=== PATIENT | female | born 1970 | race Caucasian/White ===

== ENCOUNTER 2019-07-20 22:30 | Emergency (ER) | payer BC ==
--- OUTSIDE RECORDS SUMMARY | 2019-07-20 22:45 | XMS REPORT | Continuity of Care Document ---
:1970 External Reference #:[id number] Author Name Jaqueline Ritchie NP (transmitted by agent of provider Arabella wKok) Address [address], [address] [place] [address] Care Team Providers Name Role Phone Anum Gardiner NP - Family Care Team Information Negotiator [phone] Problems Active Problems Provider Date Migraine without aura Emily Christie M.D. Onset: 06/16/2015 Social History Type Date Description Comments Sex Unknown Tobacco Use Start: Unknown Currently smokes 1-5 Cigarettes Daily Smoking Status Reviewed: 07/14/19 Currently smokes 1-5 Cigarettes Daily ETOH Use Currently consumes 1-2 days per week alcohol Tobacco Use Start: Unknown Light tobacco smoker (10 or fewer cigarettes/day) Recreational Drug Use Former Drug User Recreational Drug Use Formerly used Marijuana sporadically Exercise Type/Frequency Exercises regularly floor exercises and Yoga- 3-4 days per week. pt unable to do Cardio since diagnosis of anemia. Allergies, Adverse Reactions, Alerts Description No Known Drug Allergies Medications Active Medications SIG Qnty Indications Ordering Date Provider Zonisamide 1 po qhs for 1 wk 120caps G43.009 Nick Ramsay 03/25/2019 25mg then 2 qhs for 1 Christianne Gaytan Capsules wk then 3 qhs for 1 wk then 4 qhs Naratriptan HCL 1 by mouth as 9tabs G43.019 Nick Ramsay 03/25/2018 2.5mg needed migraine Christianne Gaytan Tablets may repeat in 4 hours, max 2/day, max 2 days per week Topiramate 1 tablet twice 360tabs Nick Ramsay 09/26/2017 100mg daily Christianne Gaytan Tablets Fluoxetine HCL 2-3 capsules by 270caps Nick Ramsay 12/06/2015 20mg mouth once daily Christianne Gaytan Capsules as directed Zofran 1 tab by mouth 20tabs Nick S. 06/02/2015 4mg Tablets every 6 hours as Christianne Gaytan needed nausea Adderall 1 by mouth twice 60tabs Unknown 20mg Tablets a day Omeprazole 1 tab po daily Anum Gardiner, 20mg [address] Caps[address] Iron (Ferrous 1 by mouth twice Unknown Gluconate) a day 256(28Fe) mg Tablets Xanax 1/2 to 1 tablet Unknown 0.25mg Tablets twice per day as needed for anxiety Naproxen Sodium Take One Tablet Unknown 550mg By Mouth Twice A Tablets Day With Food as Needed For Pain Valacyclovir HCL 1 by mouth every Unknown 500mg day Tablets Immunizations Description No Information Available Vital Signs Date Vital Result Comment 07/14/2019 2:48pm Height 67.5 inches 5'7.50" Weight 219.00 lb Heart Rate 92 /min BP Systolic Sitting 130 mmHg Lue reg cuff BP Diastolic Sitting 106 mmHg Lue reg cuff Respiratory Rate 20 /min O2 % BldC Oximetry 97 % On Ra BMI (Body Mass Index) 33.8 kg/m2 06/02/2019 12:57pm Height 67.5 inches 5'7.50" Weight 200.00 lb Heart Rate 88 /min BP Systolic Sitting 132 mmHg Lue large cuff BP Diastolic Sitting 90 mmHg Lue large cuff Respiratory Rate 16 /min O2 % BldC Oximetry 97 % BMI (Body Mass Index) 30.9 kg/m2 Results Description No Information Available Procedures Date Code Description Status 05/19/2019 70009 Sleep Study Unattended,HRT Rate,Oxygen Sat,Resp Completed Effort/Airflow Medical Devices Description No Information Available Encounters Type Date Location Provider Dx Diagnosis Office Visit 07/14/2019 Pulmonology Juliann Parsons G47.33 Obstructive sleep 3:00p [facility] apnea (adult) [facility] (pediatric) R53.83 Other fatigue Office Visit 06/02/2019 Pulmonology Juliann Parsons G47.33 Obstructive sleep 1:00p [facility] apnea (adult) [facility] (pediatric) R53.83 Other fatigue Office Visit 05/14/2019 2:00p [facility] Laisha Power, R06.83 [facility] R53.83 Other fatigue Office Visit 03/25/2019 [facility] Nick Ramsay G43.009 Migraine w/o 8:45a [facility] Gay[facility] M.D. aura, not intractable, w/o status migrainosus Office Visit 02/19/2019 [facility] Leon Wesley, R53.82 Chronic fatigue, 3:00p [facility] [place] G43.909 Migraine, unsp, not intractable, without status migrainosus D50.0 Iron deficiency anemia secondary to blood loss (chronic) Z68.34 Body mass index (BMI) 34.0-34.9, adult Assessments Date Code Description Provider 07/14/2019 G47.33 Obstructive sleep apnea (adult) (pediatric) Jaqueline Ritchie, [facility] 07/14/2019 R53.83 Other fatigue Jaqueline Ritchie NP 06/02/2019 G47.33 Obstructive sleep apnea (adult) (pediatric) Jaqueline Ritchie NP 06/02/2019 R53.83 Other fatigue Jaqueline Ritchie, [facility] 05/19/2019 G47.33 Obstructive sleep apnea (adult) (pediatric) Laisha Power MD 05/14/2019 R06.83 Snoring Laisha Power MD 05/14/2019 R53.83 Other fatigue Laisha Power MD 03/25/2019 G43.009 Migraine without aura, not intractable, Nick Gaytan M.D. without status migra 02/19/2019 R53.82 Chronic fatigue, unspecified Leon Wesley MD 02/19/2019 G43.909 Migraine, unsp, not intractable, without Leon Wesley MD status migrainosus 02/19/2019 D50.0 Iron deficiency anemia secondary to blood eLon Wesley MD loss (chronic) 02/19/2019 Z68.34 Body mass index (BMI) 34.0-34.9, adult Leon Wesley MD Plan of Treatment 07/14/2019 - Jaqueline Ritchie NPG47.33 Obstructive sleep apnea (adult) ( pediatric)Follow up:6 monthsRecommendations:Keep up the good work with your CPAP ! Aim to get 7-8 hours of sleep each night to feel your best.R53.83 Other fatigue Functional Status Description No Information Available Mental Status Description No Information Available Referrals Refer to Reason for Referral Status Appt Date Laisha Powre MD evnany sleep apnea Patient Notified 05/14/[address] [place] [phone]
[2019-07-21] MEDS ORDERED: NS 0.9% 1000 ML** 1,000 ML IV.FLUID IV ONE (00:19)
[2019-07-21] MEDS ORDERED: Ketorolac INJ* 30 MG/ML 1 ML VIAL IV PUSH ONE (00:21)
[2019-07-21] MEDS ORDERED: methylPREDNISolone 125 MG* 2 ML VIAL IV ONE (00:21)
[2019-07-21] MEDS ORDERED: Clindamycin 900 MG IVPREMIX(* 900 MG/50 ML SDV IV ONE (00:21)
--- NOTE | 2019-07-21 00:35 | ED ---
Skin Complaint - HPI Summary HPI Summary: Patient is a 48 y/o F presenting to ED with complaints of an area of redness at her right thigh that is pruritic and painful. 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 When she returned to her house, she noted that her thigh was "irritated". Pain onset after pruritus. Sx gradually worsened since onset. Patient notes that she was feeling "run-down" earlier today before coming to ED. PMHx of anxiety, depression, migraines and GERD, patient is on Prozac, Omeprazole, and Fluoxetine. She additionally notes that she took Naproxen a few hours before ED arrival. On triage, pain is rated 8 /10, nothing is noted to aggravate/alleviate Sx. Home medications and allergies are reviewed. - History of Current Complaint Chief Complaint: EDExtremityLower Time Seen by Provider: 07/21/19 00:07 Stated Complaint: POSS CELLULITIS ON LEG PER PT Hx Obtained From: Patient Onset/Duration: Started Days Ago, Still Present Skin Exposure Onset/Duration: Days Ago Timing: Constant, Lasting Days Current Severity: Severe Pain Intensity: 8 Pain Scale Used: 0-10 Numeric Skin Location: Leg - right thigh Character: Pruritus, Pain, Redness, Painful Aggravating Symptom(s): Nothing Alleviating Symptom(s): Nothing Associated Signs & Symptoms: Weakness - feeling "run down" - Allergy/Home Medications Allergies/Adverse Reactions: Allergies Allergy/AdvReac Type Severity Reaction Status Date / Time No Known Allergies Allergy Verified 05/20/15 16:02 Home Medications: Home Medications Dextroamphetamine/Amphetamine [Dextroamp-Amphetamin 20 mg Tab] 20 mg PO DAILY [History Confirmed 07/21/19] FLUoxetine CAP* [Prozac CAP*] 60 mg PO DAILY 07/21/19 [History Confirmed ] Iron 65 mg PO DAILY 07/21/19 [History Confirmed 07/21/19] Naratriptan HCl 2.5 mg PO BID PRN 07/21/19 [History Confirmed 07/21/19] Omeprazole 20 mg PO DAILY 07/21/19 [History Confirmed 07/21/19] Zonisamide 100 mg PO QPM 07/21/19 [History Confirmed 07/21/19] PMH/Surg Hx/FS Hx/Imm Hx Endocrine/Hematology History: Denies: Hx Diabetes Cardiovascular History: Denies: Hx Congestive Heart Failure, Hx Hypertension, Hx Pacemaker/ICD History: Denies: Hx Renal Disease Sensory History: Denies: Hx Hearing Aid Psychiatric History: Denies: Hx Panic Disorder - Surgical History Surgery Procedure, Year, and Place: Tubal Ligation - Immunization History Date of Tetanus Vaccine: PT STATES UNSURE Date of Influenza Vaccine: NONE Infectious Disease History: No Infectious Disease History: Denies: Traveled Outside the [place] in Last 30 Days - Family History Known Family History: Positive: Cardiac Disease, Diabetes - Social History Alcohol Use: Occasionally Substance Use Type: Reports: None Smoking Status (MU): Current Some Day Smoker Review of Systems Positive: Fatigue - feeling "run down" . Negative: Fever - on vitals, temp is 99.7 F Skin: Other - positive - red, painful, pruritic area at right thigh All Other Systems Reviewed And Are Negative: Yes Physical Exam - Summary Physical Exam Summary: VITAL SIGNS: Reviewed. GENERAL: Patient is a well-developed and nourished female who is lying comfortable in the stretcher. Patient is not in any acute respiratory distress. HEAD AND FACE: No signs of trauma. No ecchymosis, hematomas or skull depressions. No sinus tenderness. EYES: PERRLA, EOMI x 2, No injected conjunctiva, no nystagmus. EARS: Hearing grossly intact. Ear canals and tympanic membranes are within normal limits. MOUTH: Oropharynx within normal limits. NECK: Supple, trachea is midline, no adenopathy, no JVD, no carotid bruit, no c- spine tenderness, neck with full ROM CHEST: Symmetric, no tenderness at palpation LUNGS: Clear to auscultation bilaterally. No wheezing or crackles. CVS: Regular rate and rhythm, S1 and S2 present, no murmurs or gallops appreciated. ABDOMEN: Soft, non-tender. No signs of distention. No rebound no guarding, and no masses palpated. Bowel sounds are normal. EXTREMITIES: FROM in all major joints, no edema, no cyanosis or clubbing. NEURO: Alert and oriented x 3. No acute neurological deficits. Speech is normal and follows commands. SKIN: Dry and warm. There is a large area of redness, tenderness, warmness over medial aspect of the right lower thigh going to the right upper leg. The area is well demarcated. Triage Information Reviewed: Yes Vital Signs On Initial Exam: Initial Vitals Temp Pulse Resp BP Pulse Ox 99.7 F 90 18 165/106 99 07/20/19 22:36 07/20/19 22:36 07/20/19 22:36 07/20/19 22:36 07/20/19 22:36 Vital Signs Reviewed: Yes Diagnostics - Vital Signs Vital Signs Temp Pulse Resp BP Pulse Ox 07/21/19 00:00 84 98 07/20/19 23:52 78 118/73 07/20/19 22:36 99.7 F 90 18 165/106 99 - Laboratory Result Diagrams: 07/21/19 00:40 07/21/19 00:40 Lab Statement: Any lab studies that have been ordered have been reviewed, and results considered in the medical decision making process. Course/Dx - Course Course Of Treatment: Patient is a 48 y/o F presenting to ED with complaints of an area of redness at her right thigh that is pruritic and painful. 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 When she returned to her house, she noted that her thigh was "irritated". Pain onset after pruritus. Sx gradually worsened since onset. Patient notes that she was feeling "run-down" earlier today before coming to ED. On physical exam, there is a large area of redness, tenderness, warmness over medial aspect of the right lower thigh going to the right upper leg. The area is well demarcated. Labs showed WBC 15, MPV 7.3, absolute neuts 10.7, absolute monos 1.3, absolute Eos 0.7, CRP 9.16, total protein 6.3. During ED course, patient received fluids , solu-medrol 125 mg IV, toradol 15 mg IV, and Cleocin 900 mg in 50 mls @ 100 mls/hr IV. 0146 - Patient's case was discussed with Dr. Salvador, Dr. Salvador will evaluate the patient. 0208 - After evaluation, Dr. Salvador believes that the patient can be discharged to home with oral antibiotics. Patient is agreeable with this. Patient to be discharged to home. - Diagnoses Provider Diagnoses: Cellulitis of right leg - Physician Notifications Discussed Care Of Patient With: Mona Salvador Time Discussed With Above Provider: 01:46 Instructed by Provider To: Other - 0146 - Patient's case was discussed with Dr. Salvador, Dr. Salvador will evaluate the patient. 0208 - After evaluation, Dr. Salvador believes that the patient can be discharged to home with oral antibiotics. Patient is agreeable with this. Patient to be discharged to home. Discharge ED - Sign-Out/Discharge Documenting (check all that apply): Patient Departure - DISCHARGE Patient Received Moderate/Deep Sedation with Procedure: No - Discharge Plan Condition: Stable Disposition: HOME Prescriptions: Clindamycin Cap(NF) [Clindamycin Cap 300 mg Cap(NF)] 300 mg PO Q6H #30 cap Ibuprofen TAB* [Motrin TAB* 800 MG] 800 mg PO Q6H PRN #30 tab PRN Reason: Pain - Moderate Patient Education Materials: Cellulitis (ED) Referrals: Anum Gardnier, [employer] [employer] [Primary Care Provider] - 3 Days Additional Instructions: PLEASE RETURN TO ED FOR ANY NEW OR WORSENING SYMPTOMS. PLEASE FOLLOW UP WITH YOUR PRIMARY CARE PHYSICIAN WITHIN THREE DAYS. - Attestation Statements Document Initiated by Cris: Yes Documenting Scribe: JORGE QUINTERO Provider For Whom Cris is Documenting (Include Credential): ARUN LAW MD Scribe Attestation: IJORGE, scribed for ARUN LAW MD on 07/21/19 at 0413. Status of Scribe Document: Ready
[2019-07-21 00:53] LABS: ABS Basophils 0.1 10^3/ul (0-0.2); ABS Eosinophils 0.7 10^3/ul (0-0.6); ABS Lymphocytes 2.2 10^3/ul (1.0-4.8); ABS Monocytes 1.3 10^3/ul (0-0.8); ABS Neutrophils 10.7 10^3/ul (1.5-7.7); Eosinophil % 4.4 %; Hematocrit 42 % (35-47); Hemoglobin 13.9 g/dL (12.0-16.0); Lymphocyte % 14.5 %; Mean Corpuscular HGB Conc 33 g/dL (31-36); Mean Corpuscular Hemoglobin 30 pg (27-31); Mean Corpuscular Volume 92 fL (80-97); Mean Platelet Volume 7.3 fL (7.4-10.4); Platelet Count 351 10^3/uL (150-450); Red Blood Count 4.59 10^6 /uL (3.70-4.87); Red Cell Distribution Width 14 % (10-15)
[2019-07-21 01:02] LABS: Activated Partial Thrombo Time 35.2 seconds (26.0-38.0); INR 0.93 (0.82-1.09)
[2019-07-21 01:04] LABS: Albumin/Globulin Ratio 1.7 (1-3); BUN/Creatinine Ratio 14.1 (8-20); C Reactive Protein 9.16 mg/L (<8.01); Calcium 9.3 mg/dL (8.6-10.3); EGFR African American 87.1 (>60); Globulin 2.3 g/dL (2-4); Potassium 3.6 mmol/L (3.5-5.0); Total Bilirubin 0.3 mg/dL (0.2-1.0); Total Protein 6.3 g/dL (6.4-8.9)
--- NOTE | 2019-07-21 02:15 | CONSULT ---
Subjective Date of Service: 07/21/19 Interval History: 48 F PMH ADHD, depression, migraine, GERD who presented with acute itching swelling and redness of R lower leg over hte ocurs eof 1 day after a big bite on posterior aspect of R knee. Pt reports she and her are doing a lot of yard work, [place], she got bit by something and had sig. ithcing and redness over the course of one day, the swelling was getting worse so she came to the ER to get it checked out In the ER VSS, afebrile, labs unremarkble save for leukocytosis to 15, no fever , tachycardia, tachypnea. CRP low She rec'd Clindamyclin, Methylprednisone and fluids and hospitliast was asked to consult for a 1x low BP reading. No imaging was ordered. ROS: + itching burning and redness ot R LE, no CP SOB GI Family History: Findings - Reviewed non contributory Social History: Findings - Non smoker, social ETOH, no illcits Past Medical History: Findings - As be above, ADHD, depression, migraines Review of Systems - Measurements Intake and Output: Intake and Output Last 24 Hours 07/18/19 07/19/19 07/20/19 07/21/19 06:59 06:59 06:59 06:59 Intake Total 50 Balance 50 Weight 200 lb Intake: IV Fluids 50 - Review of Systems General Comments: As per HPI Objective Vital Signs - 8 hr 07/20/19 07/20/19 07/21/19 22:36 23:52 00:00 Temperature 99.7 F Pulse Rate 90 78 84 Respiratory 18 Rate Blood Pressure 165/106 118/73 (mmHg) O2 Sat by Pulse 99 98 Oximetry 07/21/19 07/21/19 07/21/19 00:02 00:22 00:47 Temperature Pulse Rate 83 81 Respiratory Rate Blood Pressure 115/81 (mmHg) O2 Sat by Pulse 98 99 99 Oximetry 07/21/19 07/21/19 07/21/19 00:53 01:00 01:22 Temperature Pulse Rate 76 82 76 Respiratory Rate Blood Pressure 117/77 114/77 (mmHg) O2 Sat by Pulse 97 98 94 Oximetry 07/21/19 07/21/19 01:39 01:41 Temperature Pulse Rate 81 Respiratory Rate Blood Pressure 98/79 98/79 (mmHg) O2 Sat by Pulse 98 Oximetry Oxygen Devices in Use Now: None Appearance: Pleasant woman, mentating AOx4 Eyes: No Scleral Icterus, PERRLA Ears/Nose/Mouth/Throat: NL Teeth, Lips, Gums, Clear Oropharnyx Neck: NL Appearance and Movements; NL JVP, Trachea Midline Respiratory: Symmetrical Chest Expansion and Respiratory Effort, Clear to Auscultation Cardiovascular: NL Sounds; No Murmurs; No JVD, RRR Abdominal: NL Sounds; No Tenderness; No Distention Lymphatic: No Cervical Adenopathy Extremities: - - [id number] tender erythematic resgion in posteior knee, no purulence Skin: - - As per above Neurological: Alert and Oriented x 3 Result Diagrams: 07/21/19 00:40 07/21/19 00:40 Assessment/Plan - Billing 48 F PMH ADHD, depression, migraine, GERD who presented with acute itching swelling and redness of R lower leg after insect bite most consistent with a non purulent skin and soft tissue infection with associated allergic response. 1) SSTI: She has no systemic signs of toxicity, no fever, tachycardia, tachypnea , x1 BP low though pt mentating and on repeat normotensive, she can tolerate oral abx and is appropriate for 7 to 10 days of oral antibitoics (consider Doxy or Bactrim) and PRN Benadryl for allergy component -She does not report tick bite, though may choose doxy given exposure to outdoors Thank you for this consult, discussed plan of care with patient who is agreeable , she is dressed and ambulating at time of my completion of exam Attending: Mona Salvador
[2019-07-21 02:33] VITALS: BP 132/81
== END 2019-07-21 02:18 | disposition home or self-care (01) ==
LOC: ED 22:30
DX: L03.115 Cellulitis of right lower limb (principal); Z87.891 Personal history of nicotine dependence; Z72.0 Tobacco use; K21.9 Gastro-esophageal reflux disease without esophagitis; F32.9 Major depressive disorder, single episode, unspecified; F41.9 Anxiety disorder, unspecified; R53.83 Other fatigue; Z79.899 Other long term (current) drug therapy; G43.909 Migraine, unspecified, not intractable, without status migrainosus
CPT/HCPCS: 36415; 80053; 83605; 85025; 85610; 85730; 86140; 87040; 96361; 96365; 96375; 99283; J1885; J2930

== ENCOUNTER 2020-03-03 11:09 | Emergency (ER) | payer BC, OTHER ==
--- NOTE | 2020-03-03 11:32 | ED ---
HPI Chest Pain - HPI Summary HPI Summary: 49 year old female presents with chest pain for the past week. States that she had a cough that has got better. Her covid was negative. She denies any nausea vomiting. No fevers. She was on a course of azithromycin which seemed to help but then stopped. She states is worse with certain movements. Has no family history of high blood pressure or diabetes. Does have a strong family history of cardiac disease. no recent travel. is a smoker. - History of Current Complaint Chief Complaint: EDChestPainROMI Time Seen by Provider: 03/03/20 11:17 Pain Intensity: 5 - Allergy/Home Medications Allergies/Adverse Reactions: Allergies Allergy/AdvReac Type Severity Reaction Status Date / Time No Known Allergies Allergy Verified 03/03/20 11:16 Home Medications: Home Medications Dextroamphetamine/Amphetamine [Dextroamp-Amphetamin 20 mg Tab] 20 mg PO BID [History Confirmed 03/03/20] FLUoxetine CAP* [Prozac CAP*] 60 mg PO DAILY 07/21/19 [History Confirmed ] Naratriptan HCl 2.5 mg PO ONCE 07/21/19 [History Confirmed 03/03/20] Omeprazole 20 mg PO DAILY 07/21/19 [History Confirmed 03/03/20] Zonisamide 100 mg PO BEDTIME 07/21/19 [History Confirmed 03/03/20] ALPRAZolam TAB* [Xanax TAB*] 0.125 - 0.25 mg PO BID PRN 03/03/20 [History Confirmed 03/03/20] Budesonide CAP(NF) 9 mg PO DAILY 03/03/20 [History Confirmed 03/03/20] Ferrous Gluconate TAB* [Fergon TAB*] 256 mg PO DAILY 03/03/20 [History Confirmed 03/03/20] Naproxen Sodium [Naproxen 550 mg tab] 550 mg PO BID PRN 03/03/20 [History Confirmed 03/03/20] ValACYclovir (*) [Valtrex 500 mg (*)] 500 mg PO DAILY 03/03/20 [History Confirmed 03/03/20] Varenicline 0.5 mg Tab(Nf) [Chantix 0.5 MG TAB(NF)] 0.5 mg PO BID 03/03/20 [ History Confirmed 03/03/20] PMH/Surg Hx/FS Hx/Imm Hx Endocrine/Hematology History: Denies: Hx Diabetes Cardiovascular History: Denies: Hx Congestive Heart Failure, Hx Hypertension, Hx Pacemaker/ICD History: Denies: Hx Renal Disease Sensory History: Denies: Hx Hearing Aid Psychiatric History: Denies: Hx Panic Disorder - Surgical History Surgery Procedure, Year, and Place: Tubal Ligation - Immunization History Date of Tetanus Vaccine: PT STATES UNSURE Date of Influenza Vaccine: NONE Infectious Disease History: No Infectious Disease History: Denies: Traveled Outside the [place] in Last 30 Days - Family History Known Family History: Positive: Cardiac Disease, Diabetes - Social History Alcohol Use: Occasionally Substance Use Type: Reports: Marijuana Smoking Status (MU): Light Every Day Tobacco Smoker Review of Systems Negative: Fever Positive: Chest Pain Positive: Shortness Of Breath. Negative: Cough Positive: Headache All Other Systems Reviewed And Are Negative: Yes Physical Exam Triage Information Reviewed: Yes Vital Signs On Initial Exam: Initial Vitals Temp Pulse Resp BP Pulse Ox 98.5 F 100 16 139/100 100 03/03/20 11:13 03/03/20 11:13 03/03/20 11:13 03/03/20 11:13 03/03/20 11:13 Vital Signs Reviewed: Yes Appearance: Positive: Well-Appearing Skin: Positive: Warm, Dry Head/Face: Positive: Normal Head/Face Inspection Eyes: Positive: Normal, Conjunctiva Clear ENT: Positive: Pharynx normal Respiratory/Lung Sounds: Positive: Clear to Auscultation, Breath Sounds Present , Other Cardiovascular: Positive: Normal - reproducible chest pain, RRR Abdomen Description: Positive: Nontender, Soft Bowel Sounds: Positive: Present Musculoskeletal: Positive: Normal Neurological: Positive: Normal Psychiatric: Positive: Normal Procedures - Sedation Patient Received Moderate/Deep Sedation with Procedure: No Diagnostics - Vital Signs Vital Signs Temp Pulse Resp BP Pulse Ox 03/03/20 11:13 98.5 F 100 16 139/100 100 - Laboratory Result Diagrams: 03/03/20 11:29 03/03/20 11:29 Lab Statement: Any lab studies that have been ordered have been reviewed, and results considered in the medical decision making process. - Radiology chest Radiology Interpretation Completed By: Radiologist Summary of Radiographic Findings: IMPRESSION: #. Elevated lung volumes may reflect obstructive lung disease or simply exuberant inspiratory effort for examination. #. No evidence for acute intrathoracic disease. - EKG No standard instances Cardiac Rate: Tachycardia EKG Rhythm: Sinus Tachycardia Summary of EKG Findings: sinus tachycardia Re-Evaluation - Re-Evaluation First Eval Re-Evaluation Time: 13:58 Comment: discussed results, patient states it does feel like rib pain, discussed likely costrochondritis Chest Pain Course/Dx - Course Course Of Treatment: 49 year old female presents with chest pain for the past week. States that she had a cough that has got better. Her covid was negative. She denies any nausea vomiting. No fevers. She was on a course of azithromycin which seemed to help but then stopped. She states is worse with certain movements. Has no family history of high blood pressure or diabetes. Does have a strong family history of cardiac disease. no recent travel. is a smoker. On exam has reproducible chest pain. EKG shows sinus tachycardia. chest xray normal. wbc normal. d-dimer normal. troponin zerox2. heart score 2. discussed likely costrochroniditis. told to take ibuprofen. told follow up with primary. patient understand and agrees with plan. - Chest Pain Differential Diagnosis/HQI/PQRI: Angina, Lower Respiratory Infection, Pulmonary Embolism - Diagnoses Provider Diagnoses: Atypical chest pain Discharge ED - Sign-Out/Discharge Documenting (check all that apply): Patient Departure - Discharge Plan Condition: Good Disposition: HOME Patient Education Materials: Chest Wall Pain (ED) Referrals: Anum Gardiner, [facility] [Primary Care Provider] - Additional Instructions: Take ibuprofen or Tylenol every 6 hours as needed for pain Follow up with primary within 5 days Return to ED if develop any new or worsening symptoms - Billing Disposition and Condition Condition: GOOD Disposition: Home - Attestation Statements Provider Attestation: I was available for consult. This patient was seen by the MARIA GUADALUPE. The patient was not presented to, seen by, or examined by me. -Dallin
[2020-03-03 11:36] LABS: ABS Basophils 0.1 10^3/ul (0-0.2); ABS Eosinophils 0.2 10^3/ul (0-0.6); ABS Lymphocytes 1.3 10^3/ul (1.0-4.8); ABS Monocytes 0.7 10^3/ul (0-0.8); ABS Neutrophils 5.9 10^3/ul (1.5-7.7); Eosinophil % 2.9 %; Hematocrit 43 % (35-47); Hemoglobin 14.6 g/dL (12.0-16.0); Lymphocyte % 16.1 %; Mean Corpuscular HGB Conc 34 g/dL (31-36); Mean Corpuscular Hemoglobin 31 pg (27-31); Mean Corpuscular Volume 91 fL (80-97); Mean Platelet Volume 6.9 fL (7.4-10.4); Platelet Count 395 10^3/uL (150-450); Red Blood Count 4.74 10^6 /uL (3.70-4.87); Red Cell Distribution Width 15 % (10-15); White Blood Count 8.2 10^3/uL (3.5-10.8)
[2020-03-03 11:52] LABS: INR 0.98 (0.82-1.09)
[2020-03-03 11:53] LABS: ALT 24 U/L (7-52); AST 20 U/L (13-39); Albumin/Globulin Ratio 1.5 (1-3); Alkaline Phosphatase 77 U/L (34-104); Anion Gap 6 mmol/L (2-11); BUN/Creatinine Ratio 11.9 (8-20); Blood Urea Nitrogen 10 mg/dL (6-24); C Reactive Protein 4.76 mg/L (<8.01); CO2 Carbon Dioxide 25 mmol/L (22-32); Calcium 9.3 mg/dL (8.6-10.3); Chloride 103 mmol/L (101-111); EGFR African American 87.9 (>60); EGFR Non-African American 72.7 (>60); Globulin 2.7 g/dL (2-4); Glucose 121 mg/dL (70-100); Potassium 3.9 mmol/L (3.5-5.0); Sodium 134 mmol/L (135-145); Total Protein 6.7 g/dL (6.4-8.9)
--- OUTSIDE RECORDS SUMMARY | 2020-03-03 11:58 | XMS REPORT | Continuity of Care Document ---
:1970 External Reference #:[id number] Author Name Francoise Brady M.D. Address [address] [place] [address] Care Team Providers Name Role Phone Irma Carrasquillo MD - Dermatology Care Team Information Field Placement Director [facility] - Urology Care Team Information Field Placement Director [phone] Julius Alejandro MD - Surgery Care Team Information Field Placement Director [phone] [facility] Sleep Lab Care Team Information Field Placement Director [phone] Problems Active Problems Provider Date Anxiety state MAIKEL King Onset: 01/25/2011 Depressive disorder Alycia Logan NP Onset: 01/25/2011 Social History Type Date Description Comments Sex Unknown Tobacco Use Start: Unknown Patient is a current OCCASIONAL CIGG, NOT cigarette smoker, REGULAR smokes some days ETOH Use Occasionally consumes 2 to 4 drinks 4 days alcohol per week Recreational Drug Use Former Drug User Recreational Drug Use Formerly used Marijuana sporadically Tobacco Use Start: Unknown Patient is a current smoker, smokes every day Smoking Status Reviewed: 02/23/20 Patient is a current smoker, smokes every day Exercise Type/Frequency exercises regularly walks, doing floor exercises throughout the day Sun Exposure Moderate amount of sun sunburns SOMETIMES exposure. Has USES SUNSCREENS experienced blistering from Seat Belt/Car Seat always uses seat belt Allergies, Adverse Reactions, Alerts Description No Known Drug Allergies Medications Active Medications SIG Qnty Indications Ordering Date Provider Azithromycin 2 by mouth every 6tabs J20.9 Francoise Alas 02/23/2020 250mg day first day then Blegen, M.D. Tablets 1 by mouth every day x 4 days Fluconazole 1 tablet by mouth 2tabs J20.9 Francoise P. 02/23/2020 150mg x1 now for yeast Christianne Brady Tablets infection,may repeat in 1 week if needed Chantix Starting one by mouth twice [facility] 01/25/2020 Month Moody a day, start per Abdifatah, BARREL MARKER-C 0.5mg X 11 package directions & 1 mg X 42 Tablets Amphetamine-Dextroam 1 by mouth twice a [facility]tabs [facility] 05/13/2019 phetamine day for add Abdifatah BARREL MARKER-C 20mg Tablets Fluoxetine HCL Take Three [facility]caps [facility] 10/11/2017 20mg Capsules By Mouth Abdifatah, BARREL MARKER-C Capsules Daily Naproxen Sodium Take One Tablet By 180tabs [facility]. 05/23/2017 550mg Mouth Twice A Day Abdifatah BARREL MARKER-C Tablets With Food as Needed For Pain Iron (Ferrous one by mouth daily 90tabs [facility] 05/04/2016 Gluconate) Abdifatah BARREL MARKER-C 256(28Fe) mg Tablets Omeprazole take one capsule 90caps M54.2 [facility] 11/08/2014 20mg by mouth every day Abdifatah, BARREL MARKER-C Capsules DR before a meal for stomach acid while taking ibuprofen Valacyclovir HCL take one tablet by 90tabs N77.1 [facility]. 03/19/2013 mouth every day Abdifatah BARREL MARKER-C 500mg Tablets Alprazolam 1/2 or 1 by mouth 60sixty F41.9 [facility]. 01/27/2010 0.25mg twice a day as Abdifatah, BARREL MARKER-C Tablets needed anxiety Naratriptan HCL Take 1 Tablet By Unknown 2.5mg Mouth as Needed Tablets For Migraine May Repeat In 4 Hours M Zonisamide Take 1 Cap AT Unknown 25mg Bedtime For 1 Week Capsules Then Increase To 2 Caps AT Bedtime For 1 Week Then 3 Caps AT Bedtime For 1 Week Then 4 Caps AT Bedtime Budesonide Take Three Unknown 3mg Caps Capsules By Mouth DR Part Every Day History Medications Famotidine 1 by mouth every 90tabs [facility] Storm, 09/16/2019 - 40mg Tablets day BARREL MARKER-C 02/23/2020 Immunizations CPT Code Status Date Vaccine Lot # [id number] Given 09/16/2019 Influenza Virus Vaccine, Quadrivalent, 3 Yr > [id number] Quad, Preserv Free 53260 Given 07/08/2018 Tdap (Adacel) [id number] 25141 Given 08/29/2015 Influenza Virus Vaccine, Quadrivalent, 3 Yr > Quad, Preserv Free 68900 Given 03/05/2006 Td Age 7 to adult Decavac, Tenivac, [place] [id number] Biologics 20073 Given 06/25/2005 MMR (Measles,Mumps,Rubella) 70986 Given 05/18/1999 DT (Adult) Vital Signs Date Vital Result Comment 09/16/2019 1:35pm Weight 230.00 lb Weight 104.328 kg BP Systolic 132 mmHg BP Diastolic 90 mmHg Heart Rate 96 /min Body Temperature 98.6 F Respiratory Rate 16 /min Height 67 inches 5'7" BMI (Body Mass Index) 36.0 kg/m2 Last Menstrual Period [id number] 12/17/2018 10:18am Weight 225.00 lb Weight 102.060 kg BP Systolic 100 mmHg BP Diastolic 60 mmHg Body Temperature 99.3 F Respiratory Rate 16 /min Results Description No Information Available Procedures Description No Information Available Medical Devices Description No Information Available Encounters Description No Information Available Assessments Date Code Description Provider 02/23/2020 J20.9 Bronchitis Francoise Brady M.D. 09/16/2019 Z00.00 Encounter for general adult medical JOSE King examination without abnormal findings 09/16/2019 F43.9 Reaction to severe stress, unspecified MAIKEL King 09/16/2019 Z23 Encounter for immunization MAIKEL King Plan of Treatment Future Appointment(s):03/23/2020 9:00 am - [facility]IKEL [facility] at [facility]02/23/2020 - Francoise Brady M.D.J20.9 BronchitisNew Medication:Azithromycin 250 mg - 2 by mouth every day first day then 1 by mouth every day x 4 daysFluconazole 150 mg - 1 tablet by mouth x1 now for yeast infection,may repeat in 1 week if neededRecommendations:-- PUSH FLUIDS, REST -- ISOLATE SELF UNTIL SYMPTOMS RESOLVE AND FEVER-FREE FOR 72 HOURS AND COVID TESTING NEG -- DO COVID TESTING- 10 AM - 3 PM [address]. REGISTER AT [employer] ORCALL [phone] -- WILL COVER WITH ANTIBIOTICS - ZITHROMAX 2 PILLS TODAY THEN 1 PER DAY FOR 4 DAYS- THE MEDICINE STAYS IN YOUR SYSTEM FOR 10 DAYS EVEN THOUGH YOU ONLY TAKE IT FOR 5 DAYS -- EAT YOGURT DAILY/ PROBIOTIC DAILY TO HELP WITH GOOD BACTERIA -- I SENT IN THE PRESCRIPTION FOR THE FLUCONAZOLE 150 MG 1 DOSE IF NEEDEDIF DEVELOP YEAST INFECTION, MAY REPEAT 1 DOSE IN 1 WEEK IF NOT RESOLVING -- NOTIFYIF FEVER AFTER 2 DAYS, SHORT OF BREATH , WORSENING OR NOT IMPROVING IN A FEW DAYS -- THAT'S GREAT THAT YOU'RE WORKING ON QUITTING SMOKING- LET US KNOW IF THE CHANTIX PRESCRIPTION DID NOT GO THROUGH Functional Status Functional Condition Comment Date Status Glasses Active Mental Status Description No Information Available Referrals Description No Information Available
--- OUTSIDE RECORDS SUMMARY | 2020-03-03 11:58 | XMS REPORT | Continuity of Care Document ---
:1970 External Reference #:[id number] Author Name Nick Gaytan M.D. (transmitted by agent of provider Brittany Rossi) Address [address] [facility], [place] [address] Care Team Providers Name Role Phone Anum Gardiner NP - Family Care Team Information Warehouse Driver [phone] Problems Active Problems Provider Date Migraine without [...] SIG Qnty Indications Ordering Date Provider Zonisamide take one every 90caps G43.009 Nick Ramsay 09/10/2019 100mg evening. Christianne Gaytan Capsules Naratriptan HCL 1 by mouth as 9tabs G43.019 Nick Ramsay 03/25/2018 2.5mg needed migraine Christianne Gaytan Tablets may repeat in 4 hours, max 2/day, max 2 days per week Fluoxetine HCL 2-3 capsules by 270caps Nick Ramsay 12/06/2015 20mg mouth once daily Christianne Gaytan Capsules as directed Zofran 1 tab by mouth 20tabs Nick Ramsay 06/02/2015 4mg Tablets every 6 hours as Christianne Gaytan needed nausea Adderall 1 by mouth twice 60tabs Unknown 20mg Tablets a day Omeprazole 1 tab po daily Anum Gardiner, 20mg INFORMATION LEAD Capsules DR Iron (Ferrous 1 by mouth [...] kg/m2 Results Description No Information Available Procedures Description No Information Available Medical Devices Description No Information Available Encounters Type Date Location Provider Dx Diagnosis Office Visit 02/17/2020 [facility] Nick Ramsay G43.009 Migraine w/o aura, 4:00p [facility] Gaytan M.D. not intractable, w/o status migrainosus Assessments Date Code Description Provider 02/17/2020 G43.009 Migraine without aura, not intractable, Nick Gaytan M.D. without status migrainosus Plan of Treatment 02/17/2020 - Nick Gaytan M.D.G43.009 Migraine without aura, not intractable, without status migrainosusFollow up:9 monthsRecommendations: Increase Zonisamide to 1-1/2 tablets at night for 2 weeks and then increase to 2 tablets Functional Status Description No Information Available Mental Status Description No Information Available Referrals Description No Information Available
--- OUTSIDE RECORDS SUMMARY | 2020-03-03 11:58 | XMS REPORT | Continuity of Care Document ---
:1970 External Reference #:[id number] Author Name Francoise Brady M.D. (transmitted by agent of provider Marta Hernandez) Address [address] [place] [address] Care Team Providers Name Role Phone Irma Carrasquillo MD - Dermatology Care Team Information Quill Stripper [facility] - Urology Care Team Information Quill Stripper Julius Alejandro MD - Surgery Care Team Information Quill Stripper [phone] [facility] Sleep Lab Care Team Information Quill Stripper [phone] Problems Active Problems Provider Date Anxiety state [...] Alas 02/23/2020 250mg day first day then Christianne Brady Tablets 1 by mouth every day x 4 days Fluconazole 1 tablet by mouth 2tabs J20.9 Francoise P. 02/23/2020 150mg x1 now for yeast Christianne Brady Tablets infection,may repeat in 1 week if needed Chantix Starting one by mouth twice 60tabs [facility] R. 01/25/2020 Month Moody a day, start per Abdifatah VEGETABLE FARMER-C 0.5mg X 11 package directions & 1 mg X 42 Tablets Amphetamine-Dextroam 1 by mouth twice a 60tabs [facility] R. 05/13/2019 phetamine day for add Abdifatah VEGETABLE FARMER-C 20mg Tablets Fluoxetine HCL Take Three 270caps [facility] R. 10/11/2017 20mg Capsules By Mouth Abdifatah, VEGETABLE FARMER-C Capsules Daily Naproxen Sodium Take One Tablet By 180tabs [facility] R. 05/23/2017 550mg Mouth Twice A Day Abdifatah VEGETABLE FARMER-C Tablets With Food as Needed For Pain Iron (Ferrous one by mouth daily 90tabs [facility] R. 05/04/2016 Gluconate) Abdifatah VEGETABLE FARMER-C 256(28Fe) mg Tablets Omeprazole take one capsule 90caps M54.2 [facility] R. 11/08/2014 20mg by mouth every day Abdifatah VEGETABLE FARMER-C Capsules DR before a meal for stomach acid while taking ibuprofen Valacyclovir HCL take one tablet by 90tabs N77.1 [facility] R. 03/19/2013 mouth every day Abdifatah VEGETABLE FARMER-C 500mg Tablets Alprazolam 1/2 or 1 by mouth 60sixty F41.9 [facility] R. 01/27/2010 0.25mg twice a day as Abdifatah, VEGETABLE FARMER-C Tablets needed anxiety Naratriptan HCL Take 1 [...] Medications Famotidine 1 by mouth every 90tabs Anum Gardiner, 09/16/2019 - 40mg Tablets day VEGETABLE FARMER-C 02/23/2020 Immunizations CPT Code Status Date Vaccine Lot # [id number] Given 09/16/2019 Influenza Virus Vaccine, Quadrivalent, 3 Yr > [id number] Quad, Preserv Free 27436 Given 07/08/2018 Tdap (Adacel) [id number] 15148 Given 08/29/2015 Influenza Virus Vaccine, Quadrivalent, 3 Yr > Quad, Preserv Free 55151 Given 03/05/2006 Td Age 7 to adult Decavac, Tenivac, [place] [id number] Biologics 86814 Given 06/25/2005 MMR (Measles,Mumps,Rubella) 06549 Given 05/18/1999 DT (Adult) Vital Signs Date Vital Result Comment 09/16/2019 1:35pm Weight 230.00 lb Weight 104.328 kg BP Systolic 132 mmHg BP Diastolic 90 mmHg Heart Rate 96 /min Body Temperature 98.6 F Respiratory Rate 16 /min Height 67 inches 5'7" BMI (Body Mass Index) 36.0 kg/m2 Last Menstrual Period [id number] 12/17/2018 10:18am Weight 225.00 lb Weight 102.060 kg BP Systolic 100 mmHg BP Diastolic 60 mmHg Body Temperature 99.3 F Respiratory Rate 16 /min Results Description No Information Available Procedures Description No Information Available Medical Devices Description No Information Available Encounters Type Date Location Provider Dx Diagnosis Office Visit 02/23/2020 Main Office Francoise Alas J20.9 Acute bronchitis, 12:45p Christianne Brady unspecified Assessments Date Code Description Provider 02/23/2020 J20.9 Bronchitis rFancoise Brady M.D. 09/16/2019 Z00.00 Encounter for general [...] 10 AM - 3 PM AT [address] [facility] [address]. REGISTER AT [employer] ORCALL [phone] -- WILL COVER WITH ANTIBIOTICS - ZITHROMAX [...]
--- OUTSIDE RECORDS SUMMARY | 2020-03-03 11:58 | XMS REPORT | Continuity of Care Document ---
:1970 External Reference #:[id number] Author Name MAIKEL King (transmitted by agent of provider Radha Penn ) Address [address] [place] [address] Care Team Providers Name Role Phone Irma Carrasquillo MD - Dermatology Care Team Information Dusting And Brushing Machine Operator [facility] - Urology Care Team Information Dusting And Brushing Machine Operator Julius Alejandro MD - Surgery Care Team Information Dusting And Brushing Machine Operator [phone] [facility] Sleep Lab Care Team Information Dusting And Brushing Machine Operator [phone] Problems Active Problems Provider Date Anxiety state [...] Chantix Starting one by mouth twice 60tabs [facility] R. 01/25/2020 Month Moody a day, start per Abdifatah SURFACING TECHNICIAN-C 0.5mg X 11 package directions & 1 mg X 42 Tablets Amphetamine-Dextroam 1 by mouth twice a 60tabs [facility] R. 05/13/2019 phetamine day for add Abdifatah SURFACING TECHNICIAN-C 20mg Tablets Fluoxetine HCL Take Three 270caps [facility] R. 10/11/2017 20mg Capsules By Mouth Abdifatah, SURFACING TECHNICIAN-C Capsules Daily Naproxen Sodium Take One Tablet By 180tabs [facility] R. 05/23/2017 550mg Mouth Twice A Day Abdifatah SURFACING TECHNICIAN-C Tablets With Food as Needed For Pain Iron (Ferrous one by mouth daily 90tabs [facility] R. 05/04/2016 Gluconate) Abdifatah SURFACING TECHNICIAN-C 256(28Fe) mg Tablets Omeprazole take one capsule 90caps M54.2 [facility] R. 11/08/2014 20mg by mouth every day Abdifatah SURFACING TECHNICIAN-C Capsules DR before a meal for stomach acid while taking ibuprofen Valacyclovir HCL take one tablet by 90tabs N77.1 [facility] R. 03/19/2013 mouth every day Abdifatah SURFACING TECHNICIAN-C 500mg Tablets Alprazolam 1/2 or 1 by mouth 60sixty F41.9 [facility] R. 01/27/2010 0.25mg twice a day as Abdifatah, SURFACING TECHNICIAN-C Tablets needed anxiety Naratriptan HCL Take 1 [...] Anum Gardiner, 09/16/2019 - 40mg Tablets day SURFACING TECHNICIAN-C 02/23/2020 Immunizations CPT Code Status Date Vaccine Lot # [id number] Given 09/16/2019 Influenza Virus Vaccine, Quadrivalent, 3 Yr > [id number] Quad, Preserv Free 48796 Given 07/08/2018 Tdap (Adacel) [id number] 07441 Given 08/29/2015 Influenza Virus Vaccine, Quadrivalent, 3 Yr > Quad, Preserv Free 83162 Given 03/05/2006 Td Age 7 to adult Decavac, Tenivac, [place] [id number] Biologics 91230 Given 06/25/2005 MMR (Measles,Mumps,Rubella) 12225 Given 05/18/1999 DT (Adult) Vital Signs Date Vital Result Comment 09/16/2019 1:35pm Weight 230.00 lb Weight 104.328 kg BP Systolic 132 mmHg BP Diastolic 90 mmHg Heart Rate 96 /min Body Temperature 98.6 F Respiratory Rate 16 /min Height 67 inches 5'7" BMI (Body Mass Index) 36.0 kg/m2 Last Menstrual Period [id number] 12/17/2018 10:18am Weight 225.00 lb Weight 102.060 kg BP Systolic 100 mmHg BP Diastolic 60 mmHg Body Temperature 99.3 F Respiratory Rate 16 /min Results Test Acquired Date Facility Test Result H/L Range Note Laboratory test 02/23/2020 [facility] Covid19, Undetected Undetected 1 finding [phone] PCR 1 SARS-CoV-2 RNA is not detected. ADDITIONAL INFORMATION Testing was performed using the mervin SARS-CoV-2 assay ([employer] on the mervin 6800 System. Fact sheets for this Emergency Use Authorization (EUA) assay can be found at the following links: For Healthcare Providers: https://www.fda.gov/media/290712/download For Patients: https://www.fda.gov/media/548707/download Test Performed by: [facility] [address] [place] [address] Astrochemist: Nitin Caballero M.D. Ph.D.; [facility]# [id number] Procedures Description No Information Available Medical Devices Description No Information Available Encounters Type Date Location Provider Dx Diagnosis Office Visit 03/03/2020 Main Office Anum Gardiner R07.9 Chest pain, 10:00a SURFACING TECHNICIAN-C unspecified Office Visit 02/23/2020 Main Office Francoise Alas J20.9 Acute bronchitis, 12:45p Christianne Brady unspecified Assessments Date Code Description Provider 03/03/2020 R07.9 Chest pain MAIKEL King 02/23/2020 J20.9 Bronchitis Francoise Brady M.D. 09/16/2019 Z00.00 Encounter for general adult medical JOSE King examination without abnormal findings 09/16/2019 F43.9 Reaction to severe stress, unspecified MAIKEL King 09/16/2019 Z23 Encounter for immunization MAIKEL King Plan of Treatment Future Appointment(s):03/23/2020 9:00 am - MAIKEL King at [facility]03/03/2020 - JOSE KingCR07.9 Chest painComments: Concerning for cardiac cause or pneumonia, needs further testing, referred to the ER for evaluation,she is agreeable to this Functional Status Functional Condition Comment Date Status Glasses Active Mental Status Description No Information Available Referrals Description No Information Available
[2020-03-03 11:59] LABS: HCG Pregnancy < 0.60 mIU/mL
[2020-03-03] MEDS ORDERED: Ketorolac INJ* 30 MG/ML 1 ML VIAL IM ONE (12:40)
[2020-03-03 15:55] VITALS: BP 140/104
== END 2020-03-03 15:00 | disposition home or self-care (01) ==
LOC: ED 11:09
DX: R07.89 Other chest pain (principal); R06.02 Shortness of breath; R51 Headache; Z79.899 Other long term (current) drug therapy; F17.210 Nicotine dependence, cigarettes, uncomplicated; Z82.49 Family history of ischemic heart disease and other diseases of the circulatory system
CPT/HCPCS: 36415; 71046; 80053; 84484; 84702; 85025; 85379; 85610; 86140; 93005; 96372; 99282; J1885